=== PATIENT | female | born 1980 | race Caucasian/White ===

== ENCOUNTER 2018-09-07 17:42 | Emergency (ER) | payer BC, MEDICAID ==
[~2018-09-07] VITALS: Ht 162.6 cm; Wt 128.4 kg
[2018-09-07 18:00] VITALS: BP 160/101
[2018-09-07 19:07] LABS: BASOPHILS % (AUTO) 0.5 % (0.0-2.0); EOSINOPHILS # (AUTO) 0.3 K/uL (0-0.4); HEMATOCRIT 34.6 % (36-48); HEMOGLOBIN 10.6 g/dL (12.0-16.0); LYMPHOCYTES % (AUTO) 37.3 % (20.5-51.1); MEAN CORPUSCULAR HEMOGLOBIN 22 pg (27-31); MEAN CORPUSCULAR HGB CONC 31 g/dL (33-37); MEAN CORPUSCULAR VOLUME 72.7 fL (80-94); MONOCYTES # (AUTO) 0.5 K/uL (0.8-1.0); NEUTROPHILS # (AUTO) 4.2 K/uL (1.8-7.7); NEUTROPHILS % (AUTO) 52.2 % (42.2-75.2); PLATELET COUNT (AUTO) 297 K/uL (140-450); RED BLOOD CELL COUNT(AUTO) 4.76 MIL/uL (4.20-5.40); RED CELL DISTRIBUTION WIDTH 19.9 % (11.6-13.7)
[2018-09-07 19:19] LABS: CARBON DIOXIDE 29.4 mmol/L (21-32); CREATININE 0.6 mg/dL (0.6-1.3); POTASSIUM 3.4 mmol/L (3.5-5.1)
[2018-09-07 19:26] LABS: ALBUMIN 3.4 g/dL (3.4-5.0); TOTAL BILIRUBIN 0.2 mg/dL (0.0-1.0)
[2018-09-07 19:38] LABS: PROTHROMBIN TIME 8.9 secs (10.8-13.4)
--- NOTE | 2018-09-07 20:14 | NUR ---
PT TO ER BED 6
--- NOTE | 2018-09-07 20:30 | NUR ---
38/F PRESENTS TO ED WITH FAMILY/FRIEND, C/O HIGH BLOOD PRESSURE, 9/10 HEADACHE, SOB, VOMITING, X1 DAY. PT REPORTS HAVING COLD SYMPTOMS THE PAST 4 DAYS. PT REPORTS PLEURITIC CHEST PAIN. PT AOX4, GCS 15, RR EVEN AND UNLABORED. LUNG SOUNDS WITH MILD WHEEZE. REPORTS RESOLVED FEVER, AFEBRILE AT THIS TIME. DENIES MED HX OR RX.
[2018-09-07] MEDS ORDERED: ASPIRIN 81 MG TAB.CHEW PO ONE (21:25)
--- NOTE | 2018-09-07 21:37 | NUR ---
PT LAYING IN BED, RR EVEN AND UNLABORED. VSS. ALL NEEDS MET
[2018-09-07 21:38] LABS: BARBITURATE, URINE NEG. ng/ml (NEG <=200); BENZODIAZEPINE, URINE NEG. ng/mL (NEG <=200); CANNABINOID, URINE NEG. ng/mL (NEG <=50); COCAINE, URINE NEG. ng/mL (NEG <=300); OPIATE, URINE NEG. ng/mL (NEG <=2000); PHENCYCLIDINE SCREEN,URINE NEG. ng/mL (NEG <=25)
[2018-09-07] MEDS ORDERED: LORazepam 2 MG/ML VIAL IM/IVP ONE (22:50)
[2018-09-07 23:20] VITALS: BP 116/50
== END 2018-09-07 23:20 | disposition home or self-care (01) ==
LOC: MED 17:42
DX: F45.8 Other somatoform disorders (principal); R42 Dizziness and giddiness; R11.10 Vomiting, unspecified
CPT/HCPCS: 36415; 70450; 71045; 80053; 80305; 81002; 81025; 83880; 84484; 85025; 85610; 85730; 93005; 96372; 99284; J2060